=== PATIENT | male | born 1985 | race Caucasian/White ===

== ENCOUNTER 2017-08-05 11:59 | Emergency (ER) | payer OTHER ==
[~2017-08-05] VITALS: Ht 190.5 cm; Wt 97.5 kg
--- OUTSIDE RECORDS SUMMARY | ~2017-08-05 | XMS | Clinical Summary ---
Demographics + + + | Address | [address] | | | [place] [address] | + + + | Home Phone | | + + + | Preferred Language | Unknown | + + + | Marital Status | | + + + | Latter-Day Affiliation | Unknown | + + + | Race | White | + + + | Ethnic Group | Not or | + + + Author + + + | Author | NON REVENUE LOCATIONS | + + + | Organization | NON REVENUE LOCATIONS | + + + | Address | Unknown | + + + | Phone | Unavailable | + + + Support + + + + + | Name | Relationship | Address | Phone | + + + + + | HUGO NAGY | BRANDON | [address] | | | | | [place] [address] | | + + + + + Care Team Providers + +------+ + | Care Spar Finisher Name | Role | Phone | + +------+ + PP | Unavailable | + +------+ + Source Comments IG[facility] is fully live on both [facility] and [facility] Allergies Not on File Current Medications Not on file Active Problems Not on file Social History + +-------+ +--------+------+ | Tobacco Use | Types | Packs/Day | Years | Date | | | | | Used | | + +-------+ +--------+------+ | Never Assessed | | | | | + +-------+ +--------+------+ + + + | Sex Assigned at | Date Recorded | | | | + + + | Not on file | | + + + Plan of Treatment + + + + + | Health Maintenance | Due Date | Last Done | Comments | + + + + + | INFLUENZA VACCINE | | | | | (FLU SHOT) | 7 | | | + + + + + Results Not on filefrom Last 3 Months"
--- OUTSIDE RECORDS SUMMARY | ~2017-08-05 | XMS | Clinical Summary ---
Demographics + + + | Address | [address] | | | [place] [address] | + + + | Home Phone | | + + + | Preferred Language | Unknown | + + + | Marital Status | | + + + | Anglican Affiliation | Unknown | + + + [...] | | | | | [place] [address] | | + + + + + Care Team Providers + +------+ + | Care Family Intervention Specialist Name | Role | Phone | + +------+ + PP | Unavailable | + +------+ + Source Comments [facility]OR is fully live on both [facility] and [facility] Allergies Not on File Current Medications Not [...]
[~2017-08-05 11:59] MED LIST: BACTRIM DS TAB1 EACH PO; CEPHALEXIN500 MG PO
[2017-08-05] MEDS ORDERED: TYLENOL325 MG PO (12:11)
[2017-08-05] MEDS ORDERED: CYCLOBENZAPRINE5 MG PO (12:23)
[2017-08-05] MEDS ORDERED: NORCO 5-325 TA1 EACH PO (12:23)
[2017-08-05] MEDS ORDERED: NAPROSYN500 MG PO (12:23)
== END 2017-08-05 13:19 | disposition home or self-care (01) ==
LOC: ED 11:59
DX: M62.830 Muscle spasm of back (principal); W20.8XXA Other cause of strike by thrown, projected or falling object, initial encounter
CPT/HCPCS: 72100; 96372; 99283; J1885

== ENCOUNTER 2017-08-07 10:27 | Emergency (ER) | payer OTHER ==
[~2017-08-07] VITALS: Ht 190.5 cm; Wt 97.5 kg
[~2017-08-07 10:27] MED LIST changes: +CYCLOBENZAPRINE5 MG PO; +NAPROSYN500 MG PO; +NORCO 5-325 TA1 EACH PO; +TYLENOL325 MG PO
== END 2017-08-07 10:58 | disposition home or self-care (01) ==
LOC: ED 10:27
DX: S39.012A Strain of muscle, fascia and tendon of lower back, initial encounter (principal); Z79.1 Long term (current) use of non-steroidal anti-inflammatories (NSAID); W19.XXXA Unspecified fall, initial encounter
CPT/HCPCS: 99282

== ENCOUNTER 2019-06-04 08:02 | Emergency (ER) | payer OTHER ==
[~2019-06-04] VITALS: Ht 190.5 cm; Wt 97.5 kg
[2019-06-04] MEDS ORDERED: NORCO 7.5-3251 EACH PO (09:02)
[2019-06-04] MEDS ORDERED: CYCLOBENZAPRINE10 MG PO (09:02)
== END 2019-06-04 09:21 | disposition home or self-care (01) ==
LOC: ED 08:02
DX: M54.42 Lumbago with sciatica, left side (principal)
CPT/HCPCS: 99283; A9270

== ENCOUNTER 2019-06-12 08:57 | Emergency (ER) | payer OTHER ==
[~2019-06-12] VITALS: Ht 190.5 cm; Wt 97.5 kg
[~2019-06-12 08:57] MED LIST changes: +CYCLOBENZAPRINE10 MG PO; +NORCO 7.5-3251 EACH PO
--- OUTSIDE RECORDS SUMMARY | 2019-06-12 09:00 | XMS ---
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 Sarah has no Care Guidelines for this patient. [facility] NOTE: Visits indicate total known visits. ED/C VISIT TRACKING (12 MO.) 06/12/2019 08:57 [facility] [place] TYPE: Emergency COMPLAINT: - BACK PAIN 06/04/2019 08:02 [facility] [place] TYPE: Emergency COMPLAINT: - BACK INJURY DIAGNOSES: - Low back pain - Lumbago with sciatica, left side INPATIENT VISIT TRACKING (12 MO.) No inpatient visits to display in this time frame [id number]
[2019-06-12] MEDS ORDERED: LIDODERM1 EACH TOP (10:10)
== END 2019-06-12 10:30 | disposition home or self-care (01) ==
LOC: ED 08:57
DX: M54.42 Lumbago with sciatica, left side (principal)
CPT/HCPCS: 99283